=== PATIENT | male | born 1970 | race Caucasian/White ===

== ENCOUNTER 2017-01-24 17:38 | Emergency (ER) | payer BC ==
[~2017-01-24 17:38] MED LIST: CARAFATE1 G PO; HYDROCODON-ACE1 EAC7 PO; KEFLEX500 M2 PO; NAPROXEN500 M1 PO; NO MEDICATIONS; PHENERGAN25 M1 PO
== END 2017-01-24 17:43 | disposition home or self-care (01) ==
LOC: CFTX 17:38
DX: H10.33 Unspecified acute conjunctivitis, bilateral (principal)
CPT/HCPCS: 99283